=== PATIENT | female | born 2000 | race Caucasian/White ===

== ENCOUNTER 2022-02-07 00:43 | Emergency (ER) | payer OTHER ==
[2022-02-07] MEDS ORDERED: CIPRO500 MG PO (03:38)
== END 2022-02-07 03:49 | disposition home or self-care (01) ==
LOC: FER 00:43
DX: L02.818 Cutaneous abscess of other sites (principal); F17.200 Nicotine dependence, unspecified, uncomplicated
CPT/HCPCS: J2001